=== PATIENT | male | born 1970 | race Caucasian/White ===

== ENCOUNTER → 2020-06-24 06:59 | Outpatient (CLI) | payer OTHER, SELFPAY ==
--- NOTE | 2020-06-24 07:01 | DI.RAD.S_ITS ---
PROCEDURE: XR ELBOW RT MIN 3V INDICATIONS: Pain TECHNIQUE: 3 views of the elbow were acquired. COMPARISON: None. FINDINGS: Bones: No fracture. Soft tissues: No elbow joint effusion. No suspicious soft tissue calcifications. IMPRESSION: No fracture. If the patient's symptoms do not improve recommend followup radiographs in 10 days to assess for healing sclerosis/occult injury. Or MRI could be performed for further evaluation. Dictated by: Abhishek Yadav M.D. on 06/24/2020 at 9:31 Approved by: Abhishek Yadav M.D. on 06/24/2020 at 9:32
--- NOTE | 2020-06-24 07:01 | DI.RAD.S_ITS ---
PROCEDURE: XR FOOT LT MIN 3V INDICATIONS: Pain TECHNIQUE: 3 views of the foot were acquired. COMPARISON: None. FINDINGS: Bones: No fracture. There are marginal lucencies seen at the 1st MTP joint. There is mild 1st MTP joint degeneration. Bunionette deformity of the 5th metatarsal is noted. Soft tissues: No tibiotalar joint effusion. Achilles tendon appears normal. IMPRESSION: Degenerative changes as above. Marginal lucencies at the 1st MTP joint, possibly erosions versus cysts. Dictated by: Abhishek Yadav M.D. on 06/24/2020 at 9:32 Approved by: Abhishek Yadav M.D. on 06/24/2020 at 9:35
[2020-06-24 08:37] LABS: Add Manual Diff / Slide Review NO; Basophils Absolute Auto 0 /uL (0-100); Basophils Percent Auto 0.4 % (0-2); Eosinophils Absolute Auto 100 /uL (0-450); Eosinophils Percent Auto 1.2 % (2-4); Hematocrit 47.1 % (41-53); Hemoglobin 16.4 g/dL (13.5-17.5); Lymphocytes Absolute Auto 1200 /uL (1100-4500); Lymphocytes Percent Auto 19.8 % (25-40); Mean Corpuscular HGB Conc 34.9 % (30-36); Mean Corpuscular Hemoglobin 31.1 PG (26-34); Mean Corpuscular Volume 89.3 fL (80-100); Monocytes Absolute Auto 400 /uL (0-900); Neutrophils Absolute Auto 4400 /uL (1500-7000); Neutrophils Percent Auto 71.6 % (50-75); Platelet Count 198 X10^3/uL (150-400); Red Blood Cell Count 5.27 X10^6/uL (4.5-5.9); Red Cell Distribution Width 12.6 % (11.6-14.8); White Blood Cell Count 6.2 X10^3/uL (4.5-11.0)
[2020-06-24 08:56] LABS: Alanine Aminotransferase 78 IU/L (<50); Albumin 4.4 g/dL (3.5-5.0); Albumin Globulin Ratio 1.4 (1.0-2.8); Alkaline Phosphatase 65 U/L (38-126); Aspartate Aminotransferase 47 IU/L (17-59); BUN Creatinine Ratio 17.2 (6-22); Bilirubin Total 0.7 mg/dL (0.2-1.3); Blood Urea Nitrogen 20 mg/dL (9-20); Calcium 9.3 mg/dL (8.4-10.2); Carbon Dioxide 34 mmol/L (22-32); Chloride 103 mmol/L (98-107); Cholesterol 189 mg/dL (140-199); Estimated Glomerular Filt Rate > 60.0 mL/min (>60); Globulin 3.2 g/dL (1.7-4.1); Glucose 97 mg/dL (70-100); HDL Cholesterol 31 mg/dL (40-60); HEMOLYSIS < 15 (0-50); LDL Cholesterol Calculated 120 mg/dL (<100); Potassium 4.2 mmol/L (3.4-5.1); Sodium 139 mmol/L (137-145); Total Protein 7.6 g/dL (6.3-8.2); Triglycerides 188 mg/dL (35-150)
[2020-06-24 09:26] LABS: Prostate Specific Antigen Scrn 0.556 ng/mL (0.1-4.0)
== END ==
PROVIDERS: Family Provider Family Medicine; PCP Family Medicine; Referring Provider Family Medicine; Visit Provider Family Medicine
DX: M25.521 Pain in right elbow (principal); M79.672 Pain in left foot; M19.072 Primary osteoarthritis, left ankle and foot; M21.622 Bunionette of left foot; E78.2 Mixed hyperlipidemia
CPT/HCPCS: 36415; 73080; 73630; 80053; 80061; 85025; G0103

== ENCOUNTER 2022-07-31 19:22 | Emergency (ER) | payer OTHER, SELFPAY ==
[2022-07-31 19:30] VITALS: BP 191/108; PULSE 74; RESP 17; TEMP 36.3; O2SAT 100; BMI 31.7
== END 2022-07-31 20:29 | disposition left against medical advice (07) ==
PROVIDERS: Emergency Provider Emergency Medicine; Family Provider Family Medicine; PCP Family Medicine
DX: M54.9 Dorsalgia, unspecified (principal)
CPT/HCPCS: 99281

== ENCOUNTER → 2022-09-01 07:55 | Outpatient (CLI) | payer OTHER, SELFPAY ==
[2022-09-01 08:50] LABS: Add Manual Diff / Slide Review NO; Basophils Absolute Auto 0 /uL (0-100); Basophils Percent Auto 0.5 % (0-2); Eosinophils Absolute Auto 100 /uL (0-450); Eosinophils Percent Auto 1.7 % (2-4); Hematocrit 45.8 % (41-53); Hemoglobin 16.2 g/dL (13.5-17.5); Lymphocytes Absolute Auto 1600 /uL (1100-4500); Lymphocytes Percent Auto 26.9 % (25-40); Mean Corpuscular HGB Conc 35.4 % (30-36); Mean Corpuscular Hemoglobin 31.1 PG (26-34); Mean Corpuscular Volume 87.9 fL (80-100); Monocytes Absolute Auto 400 /uL (0-900); Monocytes Percent Auto 7.7 % (3-14); Neutrophils Absolute Auto 3700 /uL (1500-7000); Neutrophils Percent Auto 63.2 % (50-75); Platelet Count 224 X10^3/uL (150-400); Red Blood Cell Count 5.21 X10^6/uL (4.5-5.9); Red Cell Distribution Width 12.8 % (11.6-14.8); White Blood Cell Count 5.8 X10^3/uL (4.5-11.0)
[2022-09-01 09:07] LABS: Alanine Aminotransferase 82 IU/L (<50); Alkaline Phosphatase 64 U/L (38-126); Aspartate Aminotransferase 44 IU/L (17-59); BUN Creatinine Ratio 13.3 (6-22); Bilirubin Total 0.8 mg/dL (0.2-1.3); Blood Urea Nitrogen 15 mg/dL (9-20); Calcium 9.1 mg/dL (8.4-10.2); Carbon Dioxide 29 mmol/L (22-32); Chloride 101 mmol/L (98-107); Cholesterol 202 mg/dL (140-199); Estimated Glomerular Filt Rate > 60 mL/min (>60); Glucose 93 mg/dL (70-100); HDL Cholesterol 35 mg/dL (40-60); LDL Cholesterol Calculated 141 mg/dL (<100); Potassium 4.6 mmol/L (3.4-5.1); Sodium 139 mmol/L (137-145); Total Protein 7.2 g/dL (6.3-8.2); Triglycerides 132 mg/dL (35-150); Uric Acid 7.4 mg/dL (3.5-8.5)
[2022-09-01 09:36] LABS: Prostate Specific Antigen 0.515 ng/mL (0.10-4.00)
[2022-09-07 15:20] LABS: Albumin 4.2 g/dL (3.5-5.0); Albumin Globulin Ratio 1.4 (1.0-2.8); HEMOLYSIS 16 (0-50)
== END ==
PROVIDERS: Family Provider Family Medicine; PCP Family Medicine; Referring Provider Family Medicine; Visit Provider Family Medicine
DX: E78.2 Mixed hyperlipidemia (principal); I10 Essential (primary) hypertension; M10.9 Gout, unspecified; Z00.00 Encounter for general adult medical examination without abnormal findings
CPT/HCPCS: 36415; 80053; 80061; 84153; 84550; 85025

== ENCOUNTER → 2022-09-24 15:21 | Outpatient (CLI) | payer OTHER, SELFPAY ==
--- NOTE | 2022-09-24 15:22 | DI.RAD.S_ITS ---
PROCEDURE: XR LUMBAR SPINE 2-3V INDICATIONS: low back pain TECHNIQUE: 3 views of the lumbar spine were acquired. COMPARISON: None. FINDINGS: Bones: 5 [id number] vertebrae are present. Small vertebral body osteophytes. There is normal bony alignment. No vertebral body compression fractures. No suspicious bony lesions. Soft tissues: Overlying bowel gas pattern is normal. No suspicious soft tissue calcifications. Probable clips in the right lower quadrant IMPRESSION: Mild degenerative change in the lumbar spine. Dictated by: Silvino Fraser M.D. on 09/24/2022 at 19:34 Approved by: Silvino Fraser M.D. on 09/24/2022 at 19:36
== END ==
PROVIDERS: Family Provider Family Medicine; PCP Family Medicine; Referring Provider Family Medicine; Visit Provider Family Medicine
DX: M54.50 Low back pain, unspecified (principal); M47.816 Spondylosis without myelopathy or radiculopathy, lumbar region
CPT/HCPCS: 72100

== ENCOUNTER 2022-11-27 07:17 | Day surgery (SDC) | payer OTHER, SELFPAY ==
--- NOTE | 2022-11-27 | PATH_ITS ---
[facility] Accession Number: [id number] No. of containers..01 Tissue . 01 Material submitted: . colon - ASCENDING COLON POLYP . 01 Diagnosis: Ascending Colon, Polyp, Biopsy: Tubular adenoma. MRV 11/30/2022 1044 Local . 01 Electronically signed: . Conchita Richards MD, Pathologist NPI- [id number] . 01 Gross description: . ASCENDING COLON POLYP: Received in formalin is 1 fragment(s) of schaefer, soft tissue measuring 0.1 x 0.1 x 0.1 cm submitted entirely in 1 cassette(s) /CPE 11/28/2022 0648 Local . 01 Pathologist provided ICD-10: D12.2 . 01 CPT . 539814 Specimen Comment: A courtesy copy of this report has been sent to [phone] Performed at: 01 [facility] [address] [place] [address], [place], [place] [id number] MD Amilcar Quintanilla MD Phone: [phone]
[2022-11-27 07:29] VITALS: BMI 30.4
[2022-11-27 07:42] VITALS: BP 159/108; PULSE 78; RESP 19; TEMP 36.1; O2SAT 98
[2022-11-27] MEDS: LACTATED RINGERS 1,000 ML 200 ML IV (07:43)
--- NOTE | 2022-11-27 08:25 | P.HP_ITS ---
History of Present Illness History of Present Illness Date Patient Seen: 11/27/22 Time Patient Seen: 08:25 Chief complaint: Screening Colonoscopy Narrative: The patient presents for colorectal screening. They have never had any previous examination for such. No personal or family history of colon cancer. On further history denies any recent gastrointestinal symptoms. No nausea, vomiting, abdominal pain, loss of appetite, unexplained weight loss, change in bowel habits, or blood per rectum. [facility] Medical History Sleep apnea in adult Well adult exam Surgical History Status post appendectomy Family History Father Alcohol abuse Mother Hypertension Cancer Social History household members: spouse Smoking Status: Never smoker Meds Home Medications and Allergies Home Medications Medication Instructions Recorded Confirmed Type No Known Home Medications 08/31/22 11/27/22 History Allergies Allergy/AdvReac Type Severity Reaction Status Date / Time No Known Drug Allergies Allergy Verified 11/27/22 07:28 Exam Vital Signs (past 8 hours): - 11/27/22 07:42 Temperature 96.9 F L Pulse Rate 78 Respiratory Rate 19 Blood Pressure 159/108 H Pulse Oximetry 98 Oxygen Delivery Method Room Air Oxygen Delivery Method Room Air Narrative Exam Narrative: General adult male alert oriented no acute Abdomen soft nontender nondistended Assessment & Plan Assessment & Plan narrative: The patient requires colorectal screening and colonoscopy is recommended. Technical details were discussed. Risks, benefits, alternatives explained. Risks including but not limited to myocardial infarction, aspiration, bleeding, pain, missed lesion, incomplete examination, need for further radiographic studies, colonic perforation, and need for major abdominal surgery were discussed. All questions were answered to their satisfaction, and they are in agreement with this plan.
--- NOTE | 2022-11-27 08:43 | PM.OP.COLON ---
Operative Date/Time/Diagnoses Date of procedure: 11/27/22 Time of procedure: 08:43 Pre-op diagnosis: Colorectal screening Post-op diagnosis: other (Polyp x1) Procedure & Clinicians Study performed: Colonoscopy and polypectomy Same procedure as scheduled: Yes Indications: Colorectal screening Surgeon: Heriberto David Procedure Notes Procedure in detail: The history and physical was performed/updated and the patient is ASA class is 1. The procedure was discussed in detail with the patient. Potential risks complications including infection, bleeding, missed diagnosis, perforation, need for surgery, and were explained. Their questions were answered and informed consent was obtained. Patient was brought to the procedure room and placed standard monitoring equipment. The patient's vital signs were monitored continuously throughout the entire procedure. Prior to starting time-out was performed. The patient was placed in the left lateral recumbent position. Procedural sedation was administered by anesthesia. Examination began with a thorough inspection of the perianal area there was no evidence of fissures, fistulae, external hemorrhoids or cutaneous malignancy. The colonoscopy scope was then placed into the anal canal and was advanced to the cecum, which was identified by the ileocecal valve, the appendiceal orifice and the confluence of the taenia. The scope was then slowly withdrawn examining colon thoroughly in all directions, irrigating it of any residual stool. Within the ascending colon there was a 3 mm polyp which was removed with biopsy forceps. The remainder of the colon was unremarkable. The patient tolerated the procedure well. They will be discharged once criteria are met. The prep was of good/excellent quality. The withdrawl time was 6 minutes. Specimen(s): other (Ascending colon polyp) Impression: Colonic polyp x1 Post-procedure Plan for aftercare: Follow-up is dependent on pathology findings Disposition: same day surgery
[2022-11-27 08:44] VITALS: BP 111/75; PULSE 63; RESP 11; TEMP 36.3; O2SAT 97
[2022-11-27 08:49] VITALS: BP 112/78; PULSE 60; RESP 16; O2SAT 97
--- NOTE | 2022-11-27 08:53 | SUR.PHASEI ---
Patient sitting up drinking water; vss; abdomen soft and non-distended.
[2022-11-27 08:54] VITALS: BP 133/98; PULSE 66; RESP 16; O2SAT 97
[2022-11-27 08:59] VITALS: BP 131/94; PULSE 64; RESP 16; O2SAT 98
== END 2022-11-27 09:00 | disposition home or self-care (01) ==
PROVIDERS: Family Provider Family Medicine; PCP Family Medicine; Referring Provider Surgery; Visit Provider Surgery
PROC: 0DJD8ZZ Inspection of Lower Intestinal Tract, Via Natural or Artificial Opening Endoscopic (ICD-10-PCS; CPT 45378; principal; 2022-11-27 08:15)
DX: Z12.11 Encounter for screening for malignant neoplasm of colon (principal); D12.2 Benign neoplasm of ascending colon
CPT/HCPCS: 45380; J2704; J3010

== ENCOUNTER → 2023-10-18 06:56 | Outpatient (CLI) | payer OTHER, SELFPAY ==
[2023-10-18 08:22] LABS: Hemoglobin A1C% w Est Avg Glu 5.2 % (4.0-6.0)
[2023-10-18 09:34] LABS: Alanine Aminotransferase 103 IU/L (<50); Albumin 4.3 g/dL (3.5-5.0); Albumin Globulin Ratio 1.5 (1.0-2.8); Alkaline Phosphatase 62 U/L (38-126); Aspartate Aminotransferase 64 IU/L (17-59); BUN Creatinine Ratio 16.7 (6-22); Bilirubin Total 0.9 mg/dL (0.2-1.3); Blood Urea Nitrogen 19 mg/dL (9-20); Calcium 9.5 mg/dL (8.4-10.2); Carbon Dioxide 29 mmol/L (22-32); Chloride 104 mmol/L (98-107); Cholesterol 201 mg/dL (140-199); Estimated Glomerular Filt Rate > 60 mL/min (>60); Globulin 2.9 g/dL (1.7-4.1); Glucose 90 mg/dL (70-100); HDL Cholesterol 36 mg/dL (40-60); HEMOLYSIS < 15 (0-50); LDL Cholesterol Calculated 129 mg/dL (<100); Potassium 4.5 mmol/L (3.4-5.1); Sodium 140 mmol/L (137-145); Total Protein 7.2 g/dL (6.3-8.2); Triglycerides 180 mg/dL (35-150); Uric Acid 7.4 mg/dL (3.5-8.5)
== END ==
PROVIDERS: Family Provider Family Medicine; PCP Family Medicine; Referring Provider Family Medicine; Visit Provider Family Medicine
DX: G47.30 Sleep apnea, unspecified (principal); I10 Essential (primary) hypertension; R94.5 Abnormal results of liver function studies; E78.2 Mixed hyperlipidemia; M10.9 Gout, unspecified
CPT/HCPCS: 36415; 80053; 80061; 83036; 84550

== ENCOUNTER → 2023-11-29 16:25 | Outpatient (CLI) | payer OTHER, SELFPAY ==
[2023-12-02 07:49] LABS: Hep C Virus Ab w/Reflex Quant NEGATIVE s/c (NEGATIVE)
== END ==
PROVIDERS: Family Provider Family Medicine; PCP Family Medicine; Referring Provider Family Medicine; Visit Provider Family Medicine
DX: R94.5 Abnormal results of liver function studies (principal); I10 Essential (primary) hypertension; E78.2 Mixed hyperlipidemia
CPT/HCPCS: 36415; 86803

== ENCOUNTER → 2024-10-27 17:18 | Outpatient (CLI) | payer OTHER, SELFPAY ==
--- NOTE | 2024-10-27 17:20 | DI.RAD.S_ITS ---
PROCEDURE: XR LUMBAR SPINE 2-3V INDICATIONS: eval back pain TECHNIQUE: 3 views of the lumbar spine were acquired. COMPARISON: [facility], CR, XR LUMBAR SPINE 2-3V, 09/24/2022, 15:23. FINDINGS: Lumbar spine curvature and alignment: Slight rightward curve lower thoracic and lumbar spine appreciated. Bones: There are no osseous abnormalities. Disc spaces: Minimal degenerative disc disease present L3-4 and L4-5. There is also mild L5-S1 degenerative facet disease. Soft tissues: No soft tissue swelling, calcification or mass. IMPRESSION: Mild degeneration Dictated by: Bay Cruz M.D. on 10/28/2024 at 11:22 Approved by: Bay Cruz M.D. on 10/28/2024 at 11:22
== END ==
PROVIDERS: Family Provider Family Medicine; PCP Family Medicine; Referring Provider Family Medicine; Visit Provider Family Medicine
DX: M47.817 Spondylosis without myelopathy or radiculopathy, lumbosacral region (principal); M54.9 Dorsalgia, unspecified
CPT/HCPCS: 72100

== ENCOUNTER → 2024-11-27 06:47 | Outpatient (CLI) | payer OTHER, SELFPAY ==
[2024-11-27 07:54] LABS: Add Manual Diff / Slide Review NO; Basophils Absolute Auto 0 /uL (0-100); Basophils Percent Auto 0.4 % (0-2); Eosinophils Absolute Auto 100 /uL (0-450); Eosinophils Percent Auto 1.5 % (2-4); Hematocrit 48.9 % (41-53); Hemoglobin 16.7 g/dL (13.5-17.5); Lymphocytes Absolute Auto 1500 /uL (1100-4500); Lymphocytes Percent Auto 23.5 % (25-40); Mean Corpuscular HGB Conc 34.1 % (30-36); Mean Corpuscular Hemoglobin 30.6 PG (26-34); Mean Corpuscular Volume 89.8 fL (80-100); Monocytes Absolute Auto 500 /uL (0-900); Monocytes Percent Auto 7.3 % (3-14); Neutrophils Absolute Auto 4200 /uL (1500-7000); Neutrophils Percent Auto 67.3 % (50-75); Platelet Count 241 X10^3/uL (150-400); Red Blood Cell Count 5.44 X10^6/uL (4.5-5.9); Red Cell Distribution Width 12.9 % (11.6-14.8); White Blood Cell Count 6.3 X10^3/uL (4.5-11.0)
[2024-11-27 08:19] LABS: Alanine Aminotransferase 69 IU/L (<50); Albumin 4.8 g/dL (3.5-5.0); Albumin Globulin Ratio 1.9 (1.0-2.8); Alkaline Phosphatase 64 U/L (38-126); Aspartate Aminotransferase 47 IU/L (17-59); BUN Creatinine Ratio 16.9 (6-22); Bilirubin Total 0.7 mg/dL (0.2-1.3); Blood Urea Nitrogen 22 mg/dL (9-20); Carbon Dioxide 29 mmol/L (22-32); Chloride 102 mmol/L (98-107); Cholesterol 193 mg/dL (140-199); Estimated Glomerular Filt Rate > 60 mL/min (>60); Globulin 2.5 g/dL (1.7-4.1); Glucose 99 mg/dL (70-100); HDL Cholesterol 34 mg/dL (40-60); HEMOLYSIS < 15 (0-50); LDL Cholesterol Calculated 123 mg/dL (<100); Potassium 4.5 mmol/L (3.4-5.1); Sodium 140 mmol/L (137-145); Total Protein 7.3 g/dL (6.3-8.2); Triglycerides 182 mg/dL (35-150); Uric Acid 7.2 mg/dL (3.5-8.5)
[2024-11-27 08:45] LABS: Prostate Specific Antigen 0.539 ng/mL (0.10-4.00)
== END ==
PROVIDERS: Family Provider Family Medicine; PCP Family Medicine; Referring Provider Family Medicine; Visit Provider Family Medicine
DX: Z00.00 Encounter for general adult medical examination without abnormal findings (principal); I10 Essential (primary) hypertension; E78.2 Mixed hyperlipidemia; M10.9 Gout, unspecified; E34.9 Endocrine disorder, unspecified
CPT/HCPCS: 36415; 80053; 80061; 84153; 84402; 84403; 84550; 85025

== ENCOUNTER → 2025-02-04 17:12 | Outpatient (CLI) | payer OTHER, SELFPAY ==
--- NOTE | 2025-02-04 17:28 | DI.RAD.S_ITS ---
PROCEDURE: XR FOOT RT MIN 3V INDICATIONS: Refractory right plantar fascial pain TECHNIQUE: 3 views of the foot were acquired. COMPARISON: , CR, XR FOOT LT MIN 3V, 06/24/2020, 7:06. FINDINGS: Bones: Marginal lucencies are noted at the 1st MTP joint and a cystic lucency is noted within the distal aspect of the 1st proximal phalanx. No other suspicious bony lesions. No acute fracture or dislocation. No calcaneal spurring. Soft tissues: No tibiotalar joint effusion. Achilles tendon appears normal. IMPRESSION: Periarticular lucencies of the 1st ray as above. Differential considerations include subchondral cystic changes in the setting of osteoarthritis versus erosive arthritis. Dictated by: Melanie Cottrell M.D. on 02/05/2025 at 11:33 Approved by: Melanie Cottrell M.D. on 02/05/2025 at 11:35
== END ==
PROVIDERS: Family Provider Family Medicine; PCP Family Medicine; Referring Provider Family Medicine; Visit Provider Family Medicine
DX: M72.2 Plantar fascial fibromatosis (principal)
CPT/HCPCS: 73630

== ENCOUNTER 2025-02-11 13:21 | Emergency (ER) | payer OTHER, SELFPAY ==
--- NOTE | 2025-02-11 13:30 | DI.US.S_ITS ---
PROCEDURE: US PERIPH VENOUS LOW EXTREM RT INDICATIONS: swelling, ? DVT TECHNIQUE: Real-time imaging, as well as color and pulse Doppler interrogation, were performed of the lower extremity deep veins from the inguinal ligament to the popliteal fossa, with documentation of the visualized calf veins. COMPARISON: None. FINDINGS: There is deep venous thrombosis seen within the mid superficial femoral vein through the popliteal vein. There is also deep venous thrombosis seen within the posterior tibial vein. IMPRESSION: There is a moderate burden of right-sided deep venous thrombosis present. Note: Case discussed by telephone with to Dr. Houston at 2:16 p.m. [place] time on February 11, 2025. Dictated by: Grzegorz Jeff M.D. on 02/11/2025 at 13:14 Approved by: Grzegorz Jeff M.D. on 02/11/2025 at 13:16
--- NOTE | 2025-02-11 13:42 | PC.NURSE ---
Dr Orr saw pt in waiting area prior to architectural engineer. US was ordered from waiting area and patient was taken for imaging. Will triage upon patients return. AAOx3 and ambulatory.
[2025-02-11 14:03] VITALS: BP 156/97; PULSE 78; RESP 16; TEMP 37.1; O2SAT 99; BMI 31.5
--- NOTE | 2025-02-11 14:39 | ED_ITS ---
HPI - General Adult General Chief complaint: Extremity Problem,Nontraumatic Stated complaint: Sent by [facility] possible blood clot right calf Time Seen by Provider: 02/11/25 13:25 Source: patient Mode of arrival: Ambulatory History of Present Illness HPI narrative: 54-year-old gentleman history of hypertension, has been dealing with plantar fasciitis in the right foot for the last 3 months comes in complaining of increasing tightness and swelling throughout the right calf and over the last 2 days seems to be having more pain in the medial aspect of the right thigh. No recent trauma to the calf or thigh, no recent surgery, no extended immobility or travel. No fevers, palpitations, shortness of breath, chest pain Related Data Previous Rx's ?Medication ?Instructions ?Recorded losartan 50 mg tablet 50 mg PO BEDTIME #90 tabs apixaban 5 mg (74 tabs) tablets in See Rx Instructions PO .COMPLEX 02/11/25 a dose pack #74 ea Allergies Allergy/AdvReac Type Severity Reaction Status Date / Time No Known Drug Allergies Allergy Verified 02/11/25 14:03 Review of Systems Review of Systems Narrative: Pertinent positive and negative findings as per HPI Patient History Medical History Plantar fasciitis, right Sleep apnea in adult Well adult exam Surgical History Status post appendectomy Family History Father Alcohol abuse Mother Hypertension Cancer Social History household members: spouse Smoking Status: Never smoker alcohol intake frequency: holidays/special occasions only Exam Initial Vital Signs Initial Vital Signs: Vital Signs Temperature 98.7 F 02/11/25 14:03 Pulse Rate 78 02/11/25 14:03 Respiratory Rate 16 02/11/25 14:03 Blood Pressure 156/97 H 02/11/25 14:03 Pulse Oximetry 99 02/11/25 14:03 Oxygen Delivery Method Room Air 02/11/25 14:03 General: Alert appropriate in no acute distress Respiratory: Able to speak in full sentences, no obvious respiratory distress Skin: No obvious rashes, warm and dry Neurologic: Grossly intact no obvious asymmetries or abnormalities Psych: appropriate insight and affect, cooperative Extremity: Right calf is slightly swollen but not specifically tender to touch, he does some some mild tenderness in the medial aspect of the right thigh without redness or suggestion of deeper abscess or infection. Distal pulses are palpable and appropriate on the right side Course Orders Ordered: ED Orders 02/11/25 13:30 US perip venous low extrem rt Stat Vital Signs Vital signs: Vital Signs - 8 hr 02/11/25 14:03 Temperature 98.7 F Pulse Rate 78 Respiratory Rate 16 Blood Pressure 156/97 H Pulse Oximetry 99 Oxygen Delivery Method Room Air Medical Decision Making Imaging Data US - DVT: Radiologist's Impression: PROCEDURE: US PERIP VENOUS LOW EXTREM RT INDICATIONS: swelling, ? DVT TECHNIQUE: Real-time imaging, as well as color and pulse Doppler interrogation, were performed of the lower extremity deep veins from the inguinal ligament to the popliteal fossa, with documentation of the visualized calf veins. COMPARISON: None. FINDINGS: There is deep venous thrombosis seen within the mid superficial femoral vein through the popliteal vein. There is also deep venous thrombosis seen within the posterior tibial vein. IMPRESSION: There is a moderate burden of right-sided deep venous thrombosis present. Note: Case discussed by telephone with to Dr. Houston at 2:16 p.m. [place] time on February 11, 2025. Dictated by: Grzegorz Jeff M.D. on 02/11/2025 at 13:14 MDM Narrative Medical decision making narrative: 54-year-old gentleman comes in with increasing right calf pain prov 4-5 days. He has been struggling with plantar fasciitis in the right foot but no other injuries otherwise. No known personal cancers, he has been screened for colon cancer. No known clotting disorders known signs or symptoms to suggest pulmonary emboli. Ultrasound is ordered and shows There is a moderate burden of right-sided deep venous thrombosis present. Patient will be started on apixaban and has a televideo follow up with his primary care doctor early next week regarding the plantar fasciitis. We will need to discuss length of treatment and any additional workup for this seemingly unprovoked DVT. Findings concerns and limitations reviewed with the patient. Aside from trying to avoid obvious trauma, car accidents, fighting, head injury given his increased risk of bleeding now that he is anticoagulated he can continue with regular activity. We talked about Tylenol for pain as well as compression socks to the right lower extremity to help with the fullness by the end of the day. There is no evidence of pulmonary emboli based on clinical exam at this time. No indication for further imaging or lab work. He will follow up with his primary care physician Discharge Plan Departure Patient Disposition: Home Clinical Impression: DVT (deep venous thrombosis) Qualifiers: DVT location: lower extremity Affected thrombotic vein of extremity: popliteal Chronicity: acute Laterality: right Qualified Code(s): I82.431 - Acute embolism and thrombosis of right popliteal vein Instructions: DI for Deep Vein Thrombosis Activity Restrictions/Additional Instructions: Thank you for coming in today, very appropriate reason to visit Unfortunately, your ultrasound does show a blood clot through the deeper veins of your calf and then coming up to the more superficial veins in your thigh. I have started you on apixaban/Eliquis, a blood thinner. This prevents the clot from getting any bigger but your body we will work on breaking down and read absorbing the clot as well as building new blood vessels to bypass the clot. On a blood thinner, your risk for bleeding with any type of trauma including minor head injuries is significantly higher. If you are any type of significant accident or have any type of head injury you do need to come to the ER for further evaluation to make sure that there is not internal bleeding You can use Tylenol for pain related to the swelling in your calf. You may find that a compression sock is also quite helpful particularly in the throbbing feeling by the end of the day. You do not need to limit activity otherwise. Please do follow up with your primary care physician. They may want to do additional workup to see why you develop this clot in the 1st place in the absence of recent surgery , trauma or extended immobility. They will also need to help decide how long you need to stay on the blood thinner. If you have any new or worsening symptoms particularly shortness of breath, palpitations chest pain feeling like you are going to pass out you need to come to the emergency department for further evaluation Prescription for your apixaban was sent to [facility] Prescriptions: New apixaban 5 mg (74 tabs) tablets,dose pack See Rx Instructions .ROUTE .COMPLEX Qty: 74 0RF Rx Instructions: orally per package directions No Action losartan 50 mg tablet 50 mg PO BEDTIME Qty: 90 3RF Referrals: Teo Moreno, [Primary Care Provider, Family Practice] Stand Alone Forms: Patient Portal/API
[2025-02-11] MEDS: APIXABAN 5 MG TABLET 10 MG PO (14:56)
[2025-02-11 15:09] VITALS: BP 138/90; PULSE 73; RESP 16; O2SAT 98
== END 2025-02-11 15:10 | disposition home or self-care (01) ==
PROVIDERS: Emergency Provider Emergency Medicine; Family Provider Family Medicine; PCP Family Medicine
DX: I82.431 Acute embolism and thrombosis of right popliteal vein (principal)
CPT/HCPCS: 93971; 99283

== ENCOUNTER → 2025-05-14 16:24 | Outpatient (CLI) | payer OTHER, SELFPAY ==
--- NOTE | 2025-05-14 16:26 | DI.US.S_ITS ---
PROCEDURE: US [facility] VENOUS LOW EXTREM RT INDICATIONS: screening TECHNIQUE: Real-time imaging, as well as color and pulse Doppler interrogation, were performed of the lower extremity deep veins from the inguinal ligament to the popliteal fossa, with documentation of the visualized calf veins. COMPARISON: [facility], , US [facility] VENOUS LOW EXTREM RT, 02/11/2025, 13:40. FINDINGS: There is a bifurcated femoral vein. Within the mid portion, the deeper branch has thrombus. There is nonocclusive thrombus seen within the popliteal vein. Within the posterior tibial vein, there is thrombus seen within its midportion. IMPRESSION: Right lower extremity deep venous thrombosis can be seen. The thrombus is improved compared to the prior ultrasound dated 02/11/2025. Note: Concordant preliminary findings given by the duty officer upon the completion of the examination to Dr. Moreno at 5:20 p.m. on May 14, 2025. Dictated by: Grzegorz Jeff M.D. on 05/14/2025 at 18:13 Approved by: Grzegorz Jeff M.D. on 05/14/2025 at 18:15
== END ==
PROVIDERS: PCP Family Medicine; Referring Provider Family Medicine; Visit Provider Family Medicine
DX: I82.431 Acute embolism and thrombosis of right popliteal vein (principal); I82.411 Acute embolism and thrombosis of right femoral vein; I82.441 Acute embolism and thrombosis of right tibial vein
CPT/HCPCS: 93971